=== PATIENT | male | born 1965 | race Caucasian/White ===

== ENCOUNTER 2024-12-19 08:15 | Outpatient (CLI) | payer BC | END 2024-12-19 08:16 | disposition home or self-care (01) | LOC: CSHSLEEP 08:15 | PROVIDERS: ATTEND Internal Medicine | DX: G47.33 Obstructive sleep apnea (adult) (pediatric) (principal); R53.83 Other fatigue; R51.9 Headache, unspecified; R06.83 Snoring; G25.89 Other specified extrapyramidal and movement disorders | CPT/HCPCS: 95810 ==